=== PATIENT | male | born 1965 | race Two or more races ===

== ENCOUNTER 2019-05-02 23:36 | Emergency (ER) | payer SELFPAY ==
[~2019-05-02] VITALS: Ht 175.3 cm; Wt 108.9 kg
[2019-05-03 00:09] VITALS: BP 146/89
== END 2019-05-03 01:38 ==
LOC: ER 23:38
DX: S80.812A Abrasion, left lower leg, initial encounter (principal); Z02.89 Encounter for other administrative examinations; V28.4XXA Motorcycle driver injured in noncollision transport accident in traffic accident, initial encounter; Y93.89 Activity, other specified; Y99.8 Other external cause status; Y92.89 Other specified places as the place of occurrence of the external cause
CPT/HCPCS: 73590